=== PATIENT | male | born 1945 | race Caucasian/White ===

== ENCOUNTER → 2016-12-17 | Day surgery (SDC) | payer MEDICARE, BC ==
[~2016-12-17] MED LIST: ATOR40TA PO; CHOL1CRY3 MC; FURO-68 PO; IV RINGERS SOLUTION,LACTATED 1,000 ML IV ONE; LIDOCAINE 2% TOPICAL JELLY 5GM TUBE. TP ONE; LORA10TA68 PO; METO50TA4 PO; POTA20TA4 PO; PROPOFOL 40 ML IV ONE; RANI150T6 PO; TAMS0.4C97 PO; WARF-78 PO
== END | disposition home or self-care (01) ==
LOC: SURG 11:02
PROVIDERS: ATTEND Internal Medicine Gastroenterology
DX: Z12.11 Encounter for screening for malignant neoplasm of colon (principal); K64.8 Other hemorrhoids; K57.30 Diverticulosis of large intestine without perforation or abscess without bleeding; I10 Essential (primary) hypertension
CPT/HCPCS: 36415; 45378; 85610; J2704; J7120

== ENCOUNTER → 2018-04-04 | Outpatient (CLI) | payer MEDICARE, BC ==
[~2018-04-04] MED LIST changes: -IV RINGERS SOLUTION,LACTATED 1,000 ML IV ONE; -LIDOCAINE 2% TOPICAL JELLY 5GM TUBE. TP ONE; -PROPOFOL 40 ML IV ONE; +RANI-376 PO; -RANI150T6 PO
--- NOTE | 2018-04-04 17:29 | RAD ---
EXAM: Left lower extremity venous Doppler sonogram. HISTORY: Pain and swelling. TECHNIQUE: Mendez scale and color Doppler sonographic evaluation of the left lower extremity veins with spectral waveform analysis was performed. FINDINGS: There is normal color flow, normal compressibility and there are normal spectral waveforms in the common femoral, superficial femoral, popliteal, posterior tibial and greater saphenous veins. IMPRESSION: No Doppler evidence of lower extremity deep venous thrombosis. Electronically signed by: Tiffanie Rachel MD (04/04/2018 5:25 PM) [id number]
== END | disposition home or self-care (01) ==
LOC: US 16:16
PROVIDERS: ATTEND Family Medicine
DX: M79.662 Pain in left lower leg (principal); R60.0 Localized edema; I82.403 Acute embolism and thrombosis of unspecified deep veins of lower extremity, bilateral
CPT/HCPCS: 93971

== ENCOUNTER → 2018-05-30 | Outpatient (CLI) | payer MEDICARE, BC ==
[~2018-05-30] MED LIST changes: -RANI-376 PO; +RANI150T21 PO
[2018-05-30 15:50] LABS: BASO # 0.1 x10^3/uL (0.0-0.2); BASO % 1 % (0-3); EOS # 0.4 x10^3/uL (0.0-0.7); EOS % 3 % (0-3); HEMATOCRIT 47.8 % (39.0-53.0); HEMOGLOBIN 15.4 g/dL (13.0-17.5); LYMPH # 2.5 x10^3/uL (1.0-4.8); LYMPH % 21 % (24-48); MEAN CORPUSCULAR HEMOGLOBIN 26 pg (25-35); MEAN CORPUSCULAR HGB CONC 32 g/dL (31-37); MEAN CORPUSCULAR VOLUME 82 fL (79-100); MONO # 1.2 x10^3/uL (0.0-1.1); MONO % 10 % (0-9); NEUT # 7.5 x10^3uL (1.8-7.7); NEUT % 65 % (31-73); PLATELET COUNT 269 x10^3/uL (140-400); RED BLOOD COUNT 5.84 x10^6/uL (4.30-5.70); WHITE BLOOD COUNT 11.7 x10^3/uL (4.0-11.0)
[2018-05-30 15:51] LABS: CALCIUM 8.6 mg/dL (8.5-10.1); CREATININE 1.2 mg/dL (0.7-1.3); GFR 59.2; POTASSIUM 3.9 mmol/L (3.5-5.1)
== END | disposition home or self-care (01) ==
LOC: LAB 15:22
PROVIDERS: ATTEND Internal Medicine Cardiovascular Disease
DX: E78.49 Other hyperlipidemia (principal); I25.10 Atherosclerotic heart disease of native coronary artery without angina pectoris
CPT/HCPCS: 36415; 80048; 85025

== ENCOUNTER → 2018-11-08 | Outpatient (CLI) | payer MEDICARE, BC ==
[~2018-11-08] MED LIST changes: +RANI-376 PO; -RANI150T21 PO
--- NOTE | 2018-11-08 17:45 | RAD ---
CT ABDOMEN PELVIS WO CONTRAST Indication: Gross hematuria. Exposure: One or more of the following individualized dose reduction techniques were utilized for this examination: 1. Automated exposure control 2. Adjustment of the mA and/or kV according to patient size 3. Use of iterative reconstruction technique. Comparison: None are available. Technique: No intravenous contrast given. No oral contrast per request. Findings: Evaluation of solid viscera, bowel and vasculature is compromised by the noncontrast technique. No prior study for comparison Pleural-based calcifications again seen in the visualized left lung base. There is some focal density within the left posteromedial pleural cavity, unchanged since prior CT chest of 04/15/2018. Masslike opacity in the adjacent posterior left lower lobe is also similar to the scan. More irregular left lung base markings are also again identified may represent fibrosis or atelectasis. Liver and spleen appear unremarkable. Pancreas unremarkable. No evidence of adrenal mass. Kidneys demonstrate no hydronephrosis. Tiny nonobstructive left upper pole renal calculus measures 3 mm. No right renal calculus. No evidence of ureteric calculus or dilatation. Hypodense lesions of the left kidney. Largest measures 3 cm and 0 Hounsfield units, most likely a cyst. Smaller lesion measures -1 Hounsfield units, also most likely a cyst. Gallstones are identified also seen on the prior chest CT. Aorta is mildly calcified, no evidence of aneurysm. No significant lymph node enlargement. No significant small bowel distention. The visualized proximal rectum demonstrates circumferential wall thickening, no evidence of perirectal fluid collection. Colonic diverticulosis. No evidence of acute colitis. Appendix is not clearly visualized. No evidence of ascites. No evidence of pneumoperitoneum. Urinary bladder is without definite abnormality. Prostate gland measures 5.2 cm wide. Degenerative spondylosis. Spinal and neural foraminal stenosis in the lumbar spine, severe at some levels, greatest at L3-L4. Degenerative changes at both hips, left greater than right. Mild bilateral gynecomastia. IMPRESSION: 1. Small nonobstructive left renal calculus. No evidence of hydronephrosis or obstructive ureteric calculus. 2. Chronic appearing changes of the left lung base are similar to prior chest CT. 3. Left renal lesions, most likely cysts. 4. Cholelithiasis. 5. The visualized rectum demonstrates wall thickening. Note that the most distal aspect of the rectum is not included on the scan. Nonspecific, correlate for acute or chronic proctitis. 6. Severe degenerative lumbar spine changes with severe stenosis. Electronically signed by: Magdaleno Guzman MD (11/08/2018 5:42 PM) [id number]
[2018-11-08 18:05] LABS: CALCIUM 8.7 mg/dL (8.5-10.1); CREATININE 1.2 mg/dL (0.7-1.3); POTASSIUM 3.6 mmol/L (3.5-5.1)
[2018-11-08 18:08] LABS: BASO # 0.1 x10^3/uL (0.0-0.2); BASO % 1 % (0-3); EOS # 0.2 x10^3/uL (0.0-0.7); EOS % 2 % (0-3); HEMATOCRIT 46.3 % (39.0-53.0); HEMOGLOBIN 14.7 g/dL (13.0-17.5); LYMPH # 2.2 x10^3/uL (1.0-4.8); LYMPH % 18 % (24-48); MEAN CORPUSCULAR HEMOGLOBIN 25 pg (25-35); MEAN CORPUSCULAR HGB CONC 32 g/dL (31-37); MEAN CORPUSCULAR VOLUME 78 fL (79-100); MONO # 1.6 x10^3/uL (0.0-1.1); MONO % 13 % (0-9); NEUT # 8.1 x10^3uL (1.8-7.7); NEUT % 66 % (31-73); PLATELET COUNT 294 x10^3/uL (140-400); RED BLOOD COUNT 5.94 x10^6/uL (4.30-5.70); WHITE BLOOD COUNT 12.2 x10^3/uL (4.0-11.0)
[2018-11-08 18:39] LABS: PLT ESTIMATE ADEQUATE (ADEQUATE)
[2018-11-08 18:41] LABS: ANISOCYTOSIS SLIGHT; HYPOCHROMIA SLIGHT
== END | disposition home or self-care (01) ==
LOC: CT 16:29
PROVIDERS: ATTEND Family Medicine
DX: K80.20 Calculus of gallbladder without cholecystitis without obstruction (principal); N20.0 Calculus of kidney; N28.9 Disorder of kidney and ureter, unspecified; J98.4 Other disorders of lung; I70.0 Atherosclerosis of aorta; K57.30 Diverticulosis of large intestine without perforation or abscess without bleeding; N62 Hypertrophy of breast; M16.0 Bilateral primary osteoarthritis of hip; M47.817 Spondylosis without myelopathy or radiculopathy, lumbosacral region; M48.07 Spinal stenosis, lumbosacral region
CPT/HCPCS: 36415; 74176; 80048; 85025

== ENCOUNTER → 2019-09-15 | Outpatient (CLI) | payer MEDICARE, BC ==
[~2019-09-15] MED LIST changes: -WARF-78 PO; +WARF5TAB2 PO
== END ==
LOC: LAB 10:21
PROVIDERS: ATTEND Internal Medicine Cardiovascular Disease
DX: I25.10 Atherosclerotic heart disease of native coronary artery without angina pectoris (principal); E78.2 Mixed hyperlipidemia
CPT/HCPCS: 80061

== ENCOUNTER → 2020-10-22 | Outpatient (CLI) | payer MEDICARE, BC ==
--- NOTE | 2020-10-22 15:55 | RAD ---
Left lower extremity venous ultrasound, : History: Left lower extremity swelling, history of DVT, factor V, patient on blood thinners Duplex evaluation including grayscale, color flow and spectral Doppler analysis was performed. The femoral and popliteal veins show no filling defects to suggest DVT. The visualized calf veins are u nremarkable. Limited study due to patient's body habitus. IMPRESSION: 1. Some limitations in the study but no definite evidence of deep venous thrombosis. Electronically signed by: Ney Fontaine MD (10/22/2020 3:52 PM) [facility]
== END ==
LOC: US 14:45
PROVIDERS: ATTEND Family Medicine
DX: I82.402 Acute embolism and thrombosis of unspecified deep veins of left lower extremity (principal); M79.662 Pain in left lower leg
CPT/HCPCS: 93971

== ENCOUNTER → 2021-04-02 | Outpatient (CLI) | payer MEDICARE, BC ==
[~2021-04-02] MED LIST changes: +POTA-121 PO; -POTA20TA4 PO
== END ==
LOC: LAB 15:34
PROVIDERS: ATTEND Internal Medicine Cardiovascular Disease
DX: I25.10 Atherosclerotic heart disease of native coronary artery without angina pectoris (principal); R06.02 Shortness of breath
CPT/HCPCS: 36415; 83880